=== PATIENT | female | born 1985 | race Two or more races ===

== ENCOUNTER 2017-07-10 18:10 | Emergency (ER) | payer BC ==
--- NOTE | 2017-07-10 18:26 | ED Physician Chart ---
Chief Complaint/HPI - Patient Information Date Seen:: 07/10/17 Time Seen:: 18:20 Chief Complaint:: RIGHT LOWER LEG BITE History of Present Illness:: THIS IS A 32 YR OLD FEMALE WHO STATES THAT SHE THINKS SHE WAS BITTEN BY AN INSECT BUT DID SEE ONE. SHE NOW IS CONCERNED ABOUT THE REDNESS AND SWOLLEN AREA OF THE RIGHT LOWER LEG. Allergies:: Allergies Allergy/AdvReac Type Severity Reaction Status Date / Time No Known Allergies Allergy Verified 07/10/17 18:14 Vitals:: Vital Signs - 8 hr 07/10/17 18:15 Temp 98.1 F HR 88 RR 15 BP 117/70 O2 Sat % 98 Historian:: Patient Review:: Nurse's Note Reviewed Review of Systems - Review of Systems General/Constitutional: No fever, No chills, No weight loss, No weakness, No diaphoresis, No edema, No loss of appetite Skin: Skin lesions (RIGHT LOWER LEG IN SECT BITE), No rash, No bruising Head: No headache, No light-headedness Eyes: No loss of vision, No pain, No diplopia ENT: No earache, No nasal drainage, No sore throat, No tinnitus Neck: No neck pain, No swelling, No thyromegaly, No stiffness, No mass noted Cardio Vascular: No chest pain, No palpitations, No PND, No orthopnea, No edema Pulmonary: No SOB, No cough, No sputum, No wheezing GI: No nausea, No vomiting, No diarrhea, No pain, No melena, No hematochezia, No constipation, No hematemesis G/U: No dysuria, No frequency, No hematuria Musculoskeletal: No bone or joint pain, No back pain, No muscle pain Endocrine: No polyuria, No polydipsia Psychiatric: No prior psych history, No depression, No anxiety, No suicidal ideation Hematopoietic: No bruising, No lymphadenopathy Allergic/Immuno: No urticaria, No angioedema Neurological: No syncope, No focal symptoms, No weakness, No paresthesia, No headache, No seizure, No dizziness, No confusion, No vertigo Past Medical History - Past Medical History Obtainable: Yes Past Medical History: No significant medical hx Family History: None Social History: Non Smoker, No Alcohol, No Drug Use Surgical History: None Psychiatricy History: None Medication: Reviewed Family Medical History - Family Member Mother History Unknown: Yes Physical Exam - Physical Examination General/Constitutional: Awake, Well-developed, well-nourished, Alert, No distress, GCS 15, Non-toxic appearing, Ambulatory Head: Atraumatic Eyes: Lids, conjuctiva normal, PERRL, EOMI Skin: No rash, No ecchymosis, Well hydrated, No lymphadenopathy Other Skin comments:: THERE IS A SWOLLEN RED, TENDER 2 CM AREA OF THE RIGHT LOWER LEG ON THE LATERAL SIDE. ENMT: External ears, nose nl, Nasal exam nl, Lips, teeth, gums nl Neck: Nontender, Full ROM w/o pain, No JVD, No nuchal rigidity, No bruit, No mass, No stridor Respiratory: Nl effort/Exclusion, Clear to Auscultation, No Wheeze/Rhonchi/Rales Cardio Vascular: RRR, No murmur, gallop, rubs, NL S1 S2 GI: No tenderness/rebounding/guarding, No organomegaly, No hernia, Normal BS's, Nondistended, No mass/bruits, No McBurney tenderness : No CVA tenderness Extremities: No tenderness or effusion, Full ROM, normal strength in all extremities, No edema, Normal digits & nails Neuro/Psych: Alert/oriented, DTR's symmetric, Normal sensory exam, Normal motor strength, Judgement/insight normal, Mood normal, Normal gait, No focal deficits Misc: normal gait, Normal back, No paraspinal tenderness Assessment - Assessment General Assessment: MRSA INFECT OF THE SKIN ON THE RIGHT LOWER LEG. ED Septic Shock - . Is Septic Shock (SBP<90, OR Lactate>4 mmol\L) present?: No - <6hrs of presentation: Vital Signs: Vital Signs - 8 hr 07/10/17 18:15 Temp 98.1 F HR 88 RR 15 BP 117/70 O2 Sat % 98 Reassessment (Disposition) - Reassessment Reassessment Condition:: Unchanged - Diagnosis Diagnosis:: MRSA INFECTION OF THE RIGHT LOWER LEG. - Aftercare/Follow up Instructions Aftercare/Follow-Up Instructions:: Counseled pt regarding lab results/diagnosis & need follow up, Refer to Discharge Instructions, Counseled pt & family regarding lab results/diagnosis & need follow up - Patient Disposition Discharge/Transfer:: Home Condition at Disposition:: Unchanged ED Discharge Plan - Patient Disposition Admit/Discharge/Transfer: PT DISCHARGED HOME Condition at Disposition: Unchanged
== END 2017-07-10 18:30 | disposition home or self-care (01) ==
LOC: ER 18:10
DX: A49.02 Methicillin resistant Staphylococcus aureus infection, unspecified site (principal)
CPT/HCPCS: Z7502

== ENCOUNTER 2019-05-28 11:40 | Emergency (ER) | payer BC ==
--- NOTE | 2019-08-09 11:26 | ED Physician Chart ---
ED Chief Complaint/HPI - Patient Information Chief Complaint:: Vaginal Bleeding History of Present Illness:: pt chose to sign out AMA Allergies:: Allergies Allergy/AdvReac Type Severity Reaction Status Date / Time No Known Allergies Allergy Verified 07/10/17 18:14 Family Medical History - Family Member Mother History Unknown: Yes ED Labs/Radiology/EKG Results - Lab Results Comments:: refused by pt - Radiology Results Comments:: U/S: refused by pt ED Septic Shock - . Is Septic Shock (SBP<90, OR Lactate>4 mmol\L) present?: No ED Reassessment (Disposition) - Reassessment Reassessment:: pt refused firther ER evaluation, History and Physical Exams by MD; pt chose to sign out AMA; pt is asymptomatic upon discharge/AMA Reassessment Condition:: Improved - Diagnosis Diagnosis:: Vaginal Bleeding- resolved; Pelvic Pain- resolved; Abdominal Pain-resolved - Aftercare/Follow up Instructions Aftercare/Follow-Up Instructions:: Counseled pt regarding lab results/diagnosis & need follow up, Refer to Discharge Instructions, Counseled pt & family regarding lab results/diagnosis & need follow up - Patient Disposition Discharge/Transfer:: Against Medical Advice Condition at Disposition:: Stable, Improved (RTER prn if existing s/s reoccur and/or get worse and/or any other new s/s occur; ACIs given for all above Dx; Refer to [employer] Specialist/[employer] Work[employer] ROBIN; F/U with PMD Today or prn; RTER prn if concerned)
== END 2019-05-28 12:50 | disposition left against medical advice (07) ==
LOC: ER 11:40
DX: O20.9 Hemorrhage in early pregnancy, unspecified (principal); O26.891 Other specified pregnancy related conditions, first trimester; R10.2 Pelvic and perineal pain; Z3A.08 8 weeks gestation of pregnancy; Z53.21 Procedure and treatment not carried out due to patient leaving prior to being seen by health care provider